=== PATIENT | male | born 1985 | race Caucasian/White ===

== ENCOUNTER 2021-02-16 22:31 | Emergency (ER) | payer OTHER ==
[~2021-02-16] VITALS: Ht 175.3 cm; Wt 99.9 kg
[2021-02-16] MEDS ORDERED: APAP325T4 PO (22:42)
[2021-02-16] MEDS ORDERED: GABA-282 PO (22:42)
[2021-02-16] MEDS ORDERED: COLA100C5 PO (22:42)
[2021-02-16] MEDS ORDERED: CELE1CAP4 PO (22:42)
[2021-02-16] MEDS ORDERED: ZOFR4TAB16 PO (22:42)
[2021-02-16] MEDS ORDERED: OXYC-517 PO (22:42)
--- NOTE | 2021-02-17 00:18 | REPVR ---
PROCEDURE INFORMATION: Exam: US Duplex Right Lower Extremity Veins, Limited Exam date and time: 02/17/21 (12:01am) Age: 35 years old Clinical indication: S/P recent right knee surgery. Right leg pain. Possible DVT. TECHNIQUE: Imaging protocol: Real-time Duplex ultrasound of the Right Lower Extremity with 2-D chappell scale, color Doppler flow and spectral waveform analysis with image documentation. Limited exam was focused on the right lower extremity veins. COMPARISON: Right knee plain films of 02/16/21 FINDINGS: Right deep veins: Unremarkable. The common femoral, femoral, proximal profunda femoral and popliteal veins are patent without thrombus. Normal Doppler waveforms. Normal compressibility and/or augmentation response. Right superficial veins: Unremarkable. Saphenofemoral junction is patent without thrombus. Soft tissues: Unremarkable. IMPRESSION: No evidence of deep vein thrombosis (right leg). Electronically signed by: Denice Jennings On 02/17/2021 00:18:18 AM
--- NOTE | 2021-02-17 00:26 | REPVR ---
PROCEDURE INFORMATION: Exam: XR Right Knee Exam date and time: 02/16/21 (11:47pm) Age: 35 years old Clinical indication: Right knee pain S/P surgery TECHNIQUE: Imaging protocol: XR Right knee Views: 4 or more views COMPARISON: No relevant prior studies available FINDINGS: Bones/joints: No acute fracture nor dislocation. Incidental note is made of a fabella. Soft tissues: Unremarkable. IMPRESSION: No acute findings. Electronically signed by: Denice Jennings On 02/17/2021 00:27:24 AM
[2021-02-17 00:31] VITALS: BP 141/82
[2021-02-17 00:36] LABS: BASO # 0.1 10^3/uL (0.0-0.2); BASO % 0.9 % (0.0-1.0); EOS # 0.4 10^3/uL (0.0-0.5); EOS % 5.4 % (0.0-3.0); HEMATOCRIT 43.1 % (42.0-52.0); HEMOGLOBIN 14.5 g/dl (13.5-17.5); LYMPH # 1.5 10^3/uL (1.5-5.0); LYMPH % 19.7 % (24.0-44.0); MEAN CORPUSCULAR HEMOGLOBIN 29.5 pg (27.0-33.0); MEAN CORPUSCULAR HGB CONC 33.6 g/dl (32.0-36.5); MEAN CORPUSCULAR VOLUME 87.8 fl (80.0-96.0); MONO # 0.7 10^3/uL (0.0-0.8); MONO % 8.6 % (2.0-8.0); NEUTROPHILS % 64.9 % (36.0-66.0); PLATELET COUNT, AUTOMATED 327 10^3/uL (150-450); RED BLOOD COUNT 4.91 10^6/uL (4.30-6.10); WHITE BLOOD COUNT 7.8 10^3/uL (4.0-10.0)
[2021-02-17 00:49] LABS: INR 0.83; PARTIAL THROMBOPLASTIN TIME 26.8 SECONDS (24.2-38.5); PROTHROMBIN TIME 11.5 SECONDS (12.5-14.3)
[2021-02-17 01:01] LABS: BLOOD UREA NITROGEN 18 MG/DL (7-18); CALCIUM LEVEL 9.9 MG/DL (8.5-10.1); CARBON DIOXIDE LEVEL 26 MEQ/L (21-32); CHLORIDE LEVEL 104 MEQ/L (98-107); CREATININE FOR GFR 0.96 MG/DL (0.70-1.30); GLOMERULAR FILTRATION RATE > 60.0 (>60); GLUCOSE, FASTING 115 MG/DL (70-100); POTASSIUM SERUM 4.3 MEQ/L (3.5-5.1); SODIUM LEVEL 137 MEQ/L (136-145)
== END 2021-02-17 01:35 | disposition home or self-care (01) ==
LOC: M ED 22:31
DX: M23.91 Unspecified internal derangement of right knee (principal); Z88.0 Allergy status to penicillin; Z79.891 Long term (current) use of opiate analgesic; Z79.899 Other long term (current) drug therapy